=== PATIENT | female | born 2000 | race Caucasian/White ===

== ENCOUNTER 2021-02-16 22:27 | Emergency (ER) | payer OTHER ==
[~2021-02-16] VITALS: Ht 160 cm; Wt 69.6 kg
[2021-02-16 22:37] VITALS: BP 101/62
--- NOTE | 2021-02-16 22:48 | PHYS DOC ---
Past History Past Surgical History: No Surgical History Alcohol Use: None Adult General Chief Complaint Chief Complaint: EYE PROBLEMS HPI HPI Patient is a 20-year-old female presenting for left eye problem. Patient reports she woke up this morning with left eye irritation, states it was red, had increased tears and felt like there was sand or foreign body in it. Denies any known trauma, exposure, major change in health, sick contact or travel. Nothing known makes better or worse. Reports ongoing symptoms prompted her to come in for evaluation. She is concerned with pinkeye as she has had similar presentation to this in the past that resolved with eyedrops. She does not use contact lenses Review of Systems Review of Systems Fourteen body systems of review of systems have been reviewed. See HPI for pertinent positives and negative responses, other mayer all other systems are negative, non-pertinent or non-contributory Allergies Allergies Allergies Coded Allergies Type Severity Reaction Last Updated Verified No Known Drug Allergies 02/16/21 No Physical Exam Physical Exam Constitutional: Well developed, well nourished, no acute distress, non-toxic appearance. HENT: Normocephalic, atraumatic, bilateral external ears normal, oropharynx moist, no oral exudates, nose normal. Eyes: PERRLA, EOMI, no obvious discharge but there is increased tearing of left eye with significant conjunctival injection, unremarkable eyelid examination bilaterally. Neck: Normal range of motion, no tenderness, supple, no stridor. Cardiovascular: Heart rate regular per monitor Lungs & Thorax: No respiratory distress or accessory muscle use, bilateral chest rise Abdomen: Abdomen soft, non-tender, bowel sounds present in all quadrants, no guarding or rebound, nonacute abdomen. Skin: Warm, dry, no erythema, no rash. Back: No tenderness, no CVA tenderness. Extremities: No tenderness, no cyanosis, no clubbing, ROM intact, no edema. Neurologic: Alert and oriented X 3, grossly normal motor & sensory function, no focal deficits noted. Psychologic: Affect normal, judgement normal, mood normal. Current Patient Data Vital Signs Vital Signs Date Time Temp Pulse Resp B/P (MAP) Pulse Ox O2 Delivery O2 Flow Rate FiO2 02/16/21 22:37 98.6 78 18 101/62 (75) 98 Room Air EKG EKG [] Radiology/Procedures Radiology/Procedures [] Heart Score C/O Chest Pain: No Risk Factors: Risk Factors: DM, Current or recent (<one month) smoker, HTN, HLP, family history of CAD, obesity. Risk Scores: Risk Factors: DM, Current or recent (<one month) smoker, HTN, HLP, family history of CAD, obesity. Course & Med Decision Making Course & Med Decision Making ABCs unremarkable HPI and comprehensive physical exam nonconcerning for any emergent or surgical issues No indication for further diagnostic ER workup, intervention, or hospitalization at this time Discussed most likely diagnosis of conjunctivitis of left eye. No obvious trauma or exposure to foreign body, patient has not been scratching and low risk for corneal abrasions etc. Did disclose that without formal examination such diagnoses might be missed but treatment would not alter Joint decision made to treat with antibiotic eyedrops, ciprofloxacin especially in the setting of patient who does not wear contact lenses. Adequate instructions given with close PCP and consideration for Ophtho follow-up as indicated Pedro Disclaimer Dragon Disclaimer This electronic medical record was generated, in whole or in part, using a voice recognition dictation system. Departure Departure: Impression: Primary Impression: Acute conjunctivitis, left eye Disposition: 01 HOME / SELF CARE / HOMELESS Condition: STABLE Referrals: JERMAIN ROJAS (PCP) Patient Instructions: Bacterial Conjunctivitis Additional Instructions: You were seen for an eye infection (conjunctivitis/[facility]), which can cause eye crustiness, discharge, redness, and swelling. At home: *Start the antibiotic eye drops/ointment prescribed. Instill 1 to 2 drops into the conjunctival sac every 2 hours while awake for 2 days and 1 to 2 drops every 4 hours while awake for the next 5 days *Clean your eyes with a warm washcloth as needed *Encourage frequent hand washing *Avoid sharing towels that your child may have wiped his hands/face on, since this can transmit the infection to your hands/eyes You need to see an professional application designer if your symptoms worsen or fails to improve in the next 2-3 days. Return to your doctor or the Emergency Room if you seem worse, develop a fever, has increasing redness/pain/swelling around the eyes, has trouble with your vision, or if you have any other concerns. HELLEN SARAVIA DO Feb 16, 2021 22:48
[2021-02-16] MEDS ORDERED: CIPROFLOXACIN 0.3% OPHTH SOLUTION 2.5ML BOTTLE. ONE (23:02)
[2021-02-16] MEDS: CIPROFLOXACIN 0.3% OPHTH SOLUTION 2.5ML BOTTLE. OS ONE (23:08)
== END 2021-02-16 23:17 | disposition home or self-care (01) ==
LOC: ER 22:27
DX: H10.32 Unspecified acute conjunctivitis, left eye (principal)
CPT/HCPCS: 99283